=== PATIENT | female | born 1960 | race Caucasian/White ===

== ENCOUNTER 2023-09-06 22:03 | Emergency (ER) | payer OTHER ==
[~2023-09-06] VITALS: Ht 175.3 cm; Wt 98.0 kg
[2023-09-06 22:13] VITALS: BP 132/98; PULSE 119; RESP 18; TEMP 96.9; O2SAT 96
[2023-09-06] MEDS ORDERED: METH4TAB1 PO (22:55)
[2023-09-06] MEDS ORDERED: METR-435 PO (22:55)
[2023-09-06] MEDS ORDERED: cefTRIAXone 1,000 MG in LIDOCAINE MPF 1% 2.1 ML IM ONE (22:55)
[2023-09-06] MEDS ORDERED: LIDOCAINE MPF 1% 5 ML ONE (23:01)
[2023-09-06] MEDS ORDERED: cefTRIAXone 1,000 MG VIAL ONE (23:01)
[2023-09-06 23:08] VITALS: BP 132/98; PULSE 102; RESP 18; TEMP 96.9; O2SAT 96
== END 2023-09-06 23:08 | disposition home or self-care (01) ==
LOC: MED 22:03
DX: K11.9 Disease of salivary gland, unspecified (principal); Z79.899 Other long term (current) drug therapy
CPT/HCPCS: 96372; 99283; J0696; J2001